=== PATIENT | female | born 1945 | race Hispanic/Latino ===

== ENCOUNTER 2018-07-03 14:37 | Outpatient (CLI) | payer MEDICARE ==
--- NOTE | 2018-07-03 16:05 | Mammography Report ---
LEFT DIGITAL SCREENING MAMMOGRAM with CAD: 07/03/18 14:37:00 CLINICAL: Routine screening. Breast cancer survivor status post right mastectomy. COMPARISON:01/20/16, 12/24/14 and 12/18/13 FINDINGS: The breast is heterogeneously dense, which may obscure small masses. He fibroglandular pattern is unchanged.Stable mild architectural distortion at and upper outer surgical biopsy site. No mass, suspicious architectural distortion or suspicious calcifications. IMPRESSION: No mammographic evidence of malignancy. BI-RADS CATEGORY: 2 - - Benign RECOMMENDATION: Routine screening in one year. ACR BI-RADS MAMMOGRAPHIC CODES: 0 = Needs additional imaging evaluation; 1 = Negative; 2 = Benign; 3 = Probably benign; 4 = Suspicious; 5 = Malignant; 6 = Known biopsy-proven malignancy COMMENT: 1. Dense breast tissue, i.e., adenosis, fibrocystic changes, etc., may obscure an underlying neoplasm. 2. Approximately 10% of cancers are not detected with mammography. 3. A negative mammography report should not delay biopsy if a clinically suspicious mass is present. COMMENT: Patient follow-up letters are generated via our [employer] application.
== END 2018-07-03 14:38 | disposition home or self-care (01) ==
LOC: SPVWC 14:37
PROVIDERS: ATTEND Family Medicine
DX: Z12.31 Encounter for screening mammogram for malignant neoplasm of breast (principal)
CPT/HCPCS: 77067